=== PATIENT | female | born 1955 | race Caucasian/White ===

== ENCOUNTER → 2021-03-12 10:36 | Outpatient (CLI) | payer BC, SELFPAY ==
--- NOTE | ~2021-03-12 | CT_ITS ---
EXAMINATION:CT diagnostic chest w con DATE: 03/12/2021 11:20 INDICATION: Cough. Shortness of breath. TECHNIQUE: Computed tomography (CT) of the chest was performed with 75 mL Omnipaque 350 intravenous c ontrast. Automated exposure control and iterative reconstruction technique were employed. The dose-le ngth product (DLP) was 222.22 mGy-cm. COMPARISON: None. FINDINGS: There is mild atelectasis in the lower lobes. There is a 6 mm nodule in right lower lobe. T here is bronchial wall thickening in right lower lobe. There are small groundglass opacities in the l ower lobes. No pleural effusion. The heart size is normal. No pericardial effusion. There is a small sliding hiatal hernia. There is a 5 mm cyst in the liver. There is moderate thoracic spondylosis. IMPRESSION: 1. Mild inflammation versus infection in the lower lobes. 2. Small sliding hiatal hernia. Reviewed, dictated and finalized at location B. H FREEZER OPERATOR
[2021-03-12 11:11] LABS: Estimated Glomerular Filt Rate > 60
== END ==
PROVIDERS: PCP Family Medicine; Visit Provider Family Medicine
DX: R05.9 Cough, unspecified (principal); R06.02 Shortness of breath; Z86.16 Personal history of COVID-19; K44.9 Diaphragmatic hernia without obstruction or gangrene
CPT/HCPCS: 71260; Q9967

== ENCOUNTER → 2021-04-01 07:33 | Outpatient (CLI) | payer BC, SELFPAY ==
--- NOTE | ~2021-04-01 | MR_ITS ---
EXAMINATION: MR hand RT wo/w con DATE: 04/01/2021 08:54 INDICATION: Right hand pain and swelling with pain at the first carpometacarpal joint. TECHNIQUE: Magnetic resonance imaging (MRI) of the right hand was performed without and with 14 mL Mu ltihance intravenous contrast. Sequences included sagittal, coronal, and axial T1-weighted FSE, T2-we ighted FS FSE, axial T1-weighted FS FSE and postcontrast axial and coronal T1-weighted FS FSE. 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 There is proximal migration of the first metacarpal which now abuts the distal pole of the scaphoid. The flexor carpi radialis tendon is not identified at the lev el of the carpus. There is a focal round defect in the base of the first metacarpal potentially withi n a tendon for tunnel or anchor site. Overall constellation of findings suggests prior first carpal m etacarpal suspension arthroplasty utilizing the flexor carpi radialis. Correlate with surgical histor y. Mild cortical irregularity along the distal articular surface of the scaphoid likely related to os teoarthritis. Likely reactive enhancing synovitis surrounding the region of the resected trapezium. N ormal bone marrow signal with no fracture or pathologic marrow replacing process. 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 The collateral ligament complex at the carpal phalangeal and interp halangeal joints appear normal. There is mild increased fluid signal and enhancement surrounding the intact appearing flexor pollicis longus longus tendon at the level of the palmar aspect of the first metacarpophalangeal joint suggesting focal mild tenosynovitis. The remaining flexor and extensor tend ons are normal with no tenosynovitis. Tiny erosion suggested at the tip of the ulnar styloid process. IMPRESSION: 1. Constellation of findings suggesting prior first carpal metacarpal suspension arthroplasty utilizi ng the flexor carpi radialis tendon with enhancing synovitis at the site of the likely resected trape zium. Correlate with surgical history. 2. Likely focal tenosynovitis along the flexor pollicis longus tendon at the level of the first metac arpophalangeal joint. Reviewed, dictated and finalized at location A. IGERATION ENGINE OPERATOR IMPRESSION: 1. Constellation of findings suggesting prior first carpal metacarpal suspensio n arthroplasty utilizing the flexor carpi radialis tendon with enhancing synovi tis at the site of the likely resected trapezium. Correlate with surgical histo ry. 2. Likely focal tenosynovitis along the flexor pollicis longus tendon at the le beck of the first metacarpophalangeal joint.
[2021-04-01 08:16] LABS: Estimated Glomerular Filt Rate > 60
== END ==
PROVIDERS: PCP Family Medicine
DX: M25.541 Pain in joints of right hand (principal); M79.89 Other specified soft tissue disorders
CPT/HCPCS: 73220; A9577